=== PATIENT | female | born 1945 | race Caucasian/White ===

== ENCOUNTER 2020-05-04 06:56 | Day surgery (SDC) | payer MEDICARE, OTHER ==
[~2020-05-04] VITALS: Ht 160 cm; Wt 70.3 kg
[2020-05-04] MEDS ORDERED: LEVOTHYROXINE75 MCG PO (07:23)
[2020-05-04] MEDS ORDERED: ASPIRIN81 MG PO (07:24)
[2020-05-04] MEDS ORDERED: ROSUVASTATIN CA20 MG PO (07:24)
[2020-05-04] MEDS ORDERED: VITAMIN D3100 MCG PO (07:25)
[2020-05-04] MEDS ORDERED: ALLERCLEAR10 MG PO (07:26)
[2020-05-04] MEDS ORDERED: ALLERGY MEDICAT25 MG PO (07:26)
--- NOTE | 2020-05-04 10:01 | NUR ---
05/04/20 1001 Veronica Thornton 0910 PT ARRIVED IN PACU AWAKE WITH NO C/O'S. ABD SOFT AND PASSING FLATUS. 0925 DR AT BEDSIDE TALKING TO PT. ALL QUESTIONS ANSWERED. 0935 SITTING UP IN BED SIPPING ON WATER. 0940 PT GETTING DRESSED WITH STAND BY ASSIST. 0945 PT DRESSED. DC INSTRUCTIONS GIVEN. 0952 LEFT VIA W/C. INSTRUCTIONS GIVEN TO SPOUSE AT TRUCK.
--- NOTE | 2020-05-04 10:02 | NUR ---
PT ALERT, ORIENTED AND EEMS PREPARED FOR HER SCOPE. PREP WAS A CHALLENGE FOR PT, BUT SHE WAS ABLE TO JOKE ABOUT IT. ALL QUESTIONS ASKED WERE ANSWERED. PTS' WILL TAKE PT HOME FOLLOWING DC. GAVE BLESSING, WILL FOLLOW
--- NOTE | 2020-05-04 23:44 | OR ---
[facility] [address] [place], [place] [address] Signed DATE OF OPERATION: 05/04/2020 SURGEON: Dianne An MD PREOPERATIVE DIAGNOSES: 1. Screening. 2. Hemorrhoids. 3. Chronic lifelong constipation. POSTOPERATIVE DIAGNOSES: 1. A 4 mm polyp at 20 cm. 2. A 4 mm polyp at 15 cm. 3. Moderate internal hemorrhoids. 4. Moderate sized internal anal skin tag x1. PROCEDURE: Colonoscopy with hot biopsy. ESTIMATED BLOOD LOSS: None. INDICATIONS: Adriana is a 74-year-old female asked to see me for a followup screening colonoscopy. She spoke of a colonoscopy back in 2001. She did show me the pictures and it all seemed to be fine. She told me she has lifelong constipation. She uses prunes in that regard. She also talked about two thrombosed hemorrhoids that she had lanced in the past. She told me the hemorrhoids only bother her once in a while. She was guaiac negative back in 2015. There is no family history of colon cancer or polyps. In the office, I gave Adriana a pamphlet on colonoscopy. We looked at that together along with the risks including, but not limited to gas bloating, crampy abdominal pain, bleeding, perforation requiring surgery, and missed diagnosis. We also discussed the need for IV conscious sedation, she had expressed understanding and wished to proceed. PROCEDURE NOTE: Adriana was taken into our endoscopy suite and placed in the left lateral decubitus position. She was given preoperative antibiotic due to her knee replacement. She was given 6 mg of Versed and 100 mcg of fentanyl to cover the case. A digital rectal exam was performed and this was unremarkable other than feeling the internal anal skin tag. The adult colonoscope was introduced and advanced under direct visualization into the cecum without difficulty. It took a little extra sedation and abdominal compression in Electronically Signed By: DIANNE AN MD 05/04/20 2344 PATIENT NAME: ADRIANA CONNER OPERATIVE REPORT DATE OF : 43 REPORT #: [id number] PHYSICIAN: DIANNE AN MD PCP: JORDAN TOM MD REPORT IS CONFIDENTIAL AND NOT TO BE RELEASED WITHOUT AUTHORIZATION [facility] [address] [place] [id number] Signed order to advance the scope. Her prep was quite good. We could easily see the appendiceal orifice and the ileocecal valve. The scope was slowly withdrawn. We took pictures throughout for photodocumentation. She had two tiny polyps in her sigmoid colon were easily removed with a hot biopsy forceps. There was no diverticulosis. The rectum was unremarkable. Upon retroflexion of scope, she does have moderate sized internal hemorrhoids along with a moderate-sized single internal anal skin tag. After this, the gas was suctioned out. The colonoscope removed. Adriana tolerated the procedure quite well. RECOMMENDATIONS: I will see Adriana back in my office in 7 to 14 days to review her results. Dianne An MD ALB/MODL /[id number] cc: MD Maxime Flannery DO Copies: DIANNE AN MD ~ Electronically Signed By: DIANNE AN MD 05/04/20 2344 PATIENT NAME: SADA CONNERJORIE Sia OPERATIVE REPORT DATE OF : 43 REPORT #: [id number] PHYSICIAN: DIANNE AN MD PCP: JORDAN TOM MD REPORT IS CONFIDENTIAL AND NOT TO BE RELEASED WITHOUT AUTHORIZATION
--- NOTE | 2020-05-06 12:17 | PATH ---
[facility] [address] [place], [place] [address] Signed SPECIMEN(S): A COLON POLYP AT 30 CM SPECIMEN(S): B COLON POLYP AT 15 CM SPECIMEN SOURCE: A. COLON POLYP AT 30 CM B. COLON POLYP AT 15 CM CLINICAL HISTORY: Screening colonoscopy/colon polyps, internal hemorrhoids. MICROSCOPIC DESCRIPTION: Histologic sections of all submitted blocks are examined by light microscopy. These findings, together with the gross examination, support the pathologic diagnosis. FINAL PATHOLOGIC DIAGNOSIS: A. Colon, polyp at 30 cm, polypectomy: - Severely cauterized colonic mucosa. - Negative for high-grade dysplasia or malignancy. - See comment. B. Colon, polyp at 15 cm, polypectomy: - Cauterized hyperplastic polyp. - Negative for dysplasia or malignancy. COMMENT: Regarding specimen A: The degree of cautery artifact significantly precludes the definitive evaluation for any hyperplastic features or low-grade dysplasia. If clinical concern remains, a repeat biopsy may be helpful. NAL:cml:C2NR GROSS DESCRIPTION: Two specimens are received in two containers, labeled "Adriana Conner." A. The specimen, labeled "Sharon Connerjorie, #1," and designated on the requisition "colon polyp at 30 cm," is received in formalin and consists of one rubio soft tissue fragment that measures 0.3 cm in greatest dimension. The specimen is entirely submitted in cassette (A1). B. The specimen, labeled "Regina, Adriana, #2, polyps 2 at 15 cm," is received in formalin and consists of two rubio soft tissue fragments that measure 0.2 and 0.3 cm in greatest dimension. The specimen is entirely submitted in cassette (B1). FB (under the direct supervision of a pathologist) PATIENT NAME: ADRIANA CONNER PATHOLOGY DATE OF : 43 REPORT #: [id number] PHYSICIAN: RAY PATHOLOGY PCP: JORDAN TOM MD REPORT IS CONFIDENTIAL AND NOT TO BE RELEASED WITHOUT AUTHORIZATION [facility] [address] [place], [place] [address] Signed The Gross Description was prepared using a voice recognition system. The report was reviewed for accuracy; however, sound-alike word errors, addition and/or deletions may occur. If there is any question about this report, please contact Client Services. PERFORMING LABORATORY: The technical component was performed by [facility] [address] (Expedition Supervisor: Leidy Grace MD; CLIA# [id number]). [facility], [address] [address] (CLIA# [id number]). Diagnostician: Jennie Doran MD Pathologist Electronically Signed 05/06/2020 Copies: ~ PATIENT NAME: ADRIANA CONNER PATHOLOGY DATE OF : 43 REPORT #: [id number] PHYSICIAN: RAY MCCULLOUGH PCP: JORDAN TOM MD REPORT IS CONFIDENTIAL AND NOT TO BE RELEASED WITHOUT AUTHORIZATION
== END 2020-05-04 09:52 | disposition home or self-care (01) ==
LOC: DS 06:56 → OPS 06:56 → DS 08:15 → OPS 09:52
PROVIDERS: Colon & Rectal Surgery
PROC: 0DBN8ZZ Excision of Sigmoid Colon, Via Natural or Artificial Opening Endoscopic (ICD-10-PCS; principal; 2020-05-04 08:15)
DX: Z12.11 Encounter for screening for malignant neoplasm of colon (principal); K63.5 Polyp of colon; K64.8 Other hemorrhoids; K64.4 Residual hemorrhoidal skin tags; E78.5 Hyperlipidemia, unspecified; E03.9 Hypothyroidism, unspecified; Z79.899 Other long term (current) drug therapy; Z79.82 Long term (current) use of aspirin; Z88.8 Allergy status to other drugs, medicaments and biological substances; Z88.2 Allergy status to sulfonamides
CPT/HCPCS: 99153; G0500; J0690; J2250; J3010; J7121